=== PATIENT | male | born 1930 | race Caucasian/White ===

== ENCOUNTER → 2018-05-29 | Outpatient (CLI) | payer MEDICARE, BC ==
--- NOTE | 2018-05-29 17:57 | PCVCIMAG ---
EXAM: BILATERAL LOWER EXTREMITY ARTERIAL DUPLEX INDICATION: Peripheral Arterial Disease. Leg pain. Nonhealing ulcer medial left ankle. FINDINGS: Right Leg: Common femoral and profunda femoral arteries are patent. Superficial femoral artery and popliteal artery are patent. The peroneal and posterior tibial arteries are patent. Occlusion of the mid/distal anterior tibial artery. Left Leg: Common femoral and profunda femoral arteries are patent. Superficial femoral artery and popliteal artery are patent. Increased systolic velocity 490 cm/s tibial peroneal trunk consistent with 90% stenosis. Moderate stenosis origin posterior tibial artery. Moderate stenosis origin peroneal artery. Occlusion throughout the anterior tibial artery. IMPRESSION: Occlusion of the mid/distal right anterior tibial artery. Otherwise no flow-limiting stenosis in the right lower extremity. 90% stenosis left tibioperoneal trunk with moderate stenosis at the origins of the left peroneal and posterior tibial arteries. Occlusion left anterior tibial artery. LOC:[id number]
== END | disposition home or self-care (01) ==
LOC: PCVCIMAG 11:39
DX: I73.9 Peripheral vascular disease, unspecified (principal); L98.491 Non-pressure chronic ulcer of skin of other sites limited to breakdown of skin
CPT/HCPCS: 93925

== ENCOUNTER → 2018-06-15 | Outpatient (CLI) | payer MEDICARE, BC ==
[~2018-06-15] MED LIST: CLOPIDOGREL BISULFATE 75 MG TABLET ONE; DIAZEPAM 10 MG TABLET. ONE; EPTIFIBATIDE BOLUS 2,000 MCG/ML 10ML VIAL. IV ONE; HEPARIN for SUB-Q USE 5,000 UNIT/ML VIAL. SQ ONE; IODIXANOL 270 MG/ML 100 ML VIAL. ONE; IV NORMAL SALINE 1000ML BAG 1,000 ML ONE; LIDOCAINE 1%/EPI 1:100,000 20 ML VIAL. ONE; MIDAZOLAM HCL/PF 2 MG/2 ML VIAL. ONE; fentaNYL PF VIAL 100 MCG/2 ML VIAL ONE; hydrALAZINE 20 MG/ML VIAL. ONE
--- NOTE | 2018-06-15 12:31 | PCVCINTER ---
EXAM: 1. LEFT LOWER EXTREMITY RUNOFF ANGIOGRAM 2. LEFT TIBIOPERONEAL TRUNK/PROXIMAL PERONEAL ARTERY ATHERECTOMY AND ANGIOPLASTY. 4. SECONDARY THROMBECTOMY LEFT TIBIOPERONEAL TRUNK AND PROXIMAL PERONEAL ARTERY. 5. ANGIOPLASTY PROXIMAL LEFT POSTERIOR TIBIAL ARTERY. INDICATION: Peripheral arterial disease. Coronary artery disease. Nonhealing ulcer left lower extremity. Hypertension. Renal atherosclerosis. No prior catheter based angiographic study is available. A full diagnostic angiogram study is performed today and the decision to intervene is based on this diagnostic study. PROCEDURE: Procedure and risks of angiography intervention is appropriate including limb loss stroke and were discussed with the patient's family and consent obtained. The patient's right groin was prepped in the normal sterile fashion. IV conscious sedation was used throughout procedure with appropriate monitoring from 10:30 AM through 12:00 PM. Ultrasound was used to interrogate the right groin and showed the right common femoral artery to be patent. A permanent spot film was obtained. Under ultrasound guidance access into the right common femoral artery was obtained and a 5 Mongolian sheath was placed. Through this a 5 Mongolian catheter was placed into left common iliac artery and left iliac angiogram obtained. Catheter was advanced to the level of the left external iliac artery and left leg runoff angiography was obtained. Patient was given 4500 units of heparin. A 6 Mongolian crossover sheath was placed via the right groin to the level of the left common femoral artery. Atherectomy of the left tibioperoneal trunk/proximal peroneal artery was performed with 0.9 mm BluetestnetTamtron laser atherectomy catheter in the standard fashion. Following atherectomy small areas of thrombus were observed and because of this secondary thrombectomy throughout the left tibioperoneal trunk/proximal peroneal artery was carried out with mechanical suction thrombectomy catheter in the standard fashion. Minimal debris was removed. Angioplasty of the left tibioperoneal trunk/proximal peroneal artery was carried out with a 3.0 x 40 sleek [employer] catheter. Next angioplasty of the left tibioperoneal trunk and proximal posterior tibial artery was carried out with a 4.0 x 40 sleek [employer] catheter. Following this angioplasty of the proximal left posterior tibial artery was carried out with a 2.0 x 40 sleek [employer] catheter. Follow-up angiogram was performed. Catheters and wires removed. Sheath was removed and hemostasis obtained using the FISH device. No immediate complications. FINDINGS: Left leg: Left common and external iliac arteries show good patency. Left common femoral artery is patent. Left profunda femoral artery is patent. Superficial femoral artery and popliteal artery show satisfactory patency throughout. 80% stenosis tibioperoneal trunk. 90% stenosis proximal posterior tibial artery. 80% stenosis origin of the left peroneal artery. Anterior tibial artery is occluded throughout. Left tibioperoneal trunk/proximal peroneal artery: Following procedure as above left tibioperoneal trunk shows good patency throughout. Moderate residual stenosis at the origin of the left peroneal artery. Left proximal posterior tibial artery: Following procedure as above vessel shows good patency. IMPRESSION: Areas of stenosis left tibioperoneal trunk, proximal peroneal artery, and proximal posterior tibial artery were treated as above with improved patency as described. LOC:[id number]
== END | disposition home or self-care (01) ==
LOC: PCVCINTER 10:29
PROVIDERS: ATTEND Nuclear Medicine Nuclear Cardiology
DX: I70.248 Atherosclerosis of native arteries of left leg with ulceration of other part of lower leg (principal); L98.499 Non-pressure chronic ulcer of skin of other sites with unspecified severity; I25.10 Atherosclerotic heart disease of native coronary artery without angina pectoris; I10 Essential (primary) hypertension; I70.1 Atherosclerosis of renal artery; I87.1 Compression of vein
CPT/HCPCS: 37186; 37229; 37232; 75710; 76937; 99152; 99153; C1713; C1725; C1751; C1757; C1760; C1769; C1885; C1894; J0360; J0690; J1327; J1644; J2250; J3010; J3490; J7030; Q9967; 37228

== ENCOUNTER → 2018-06-26 | Outpatient (CLI) | payer MEDICARE, BC ==
[~2018-06-26] MED LIST changes: -CLOPIDOGREL BISULFATE 75 MG TABLET ONE; -EPTIFIBATIDE BOLUS 2,000 MCG/ML 10ML VIAL. IV ONE; -IODIXANOL 270 MG/ML 100 ML VIAL. ONE; +IOHEXOL 300 MG/ML 100ML VIAL. ONE; -IV NORMAL SALINE 1000ML BAG 1,000 ML ONE; +IV NORMAL SALINE 500ML BAG 500 ML ONE; +LIDOCAINE 1% Multi-Dose 20 ML VIAL. ONE; -LIDOCAINE 1%/EPI 1:100,000 20 ML VIAL. ONE
--- NOTE | 2018-06-26 12:59 | PCVCIMAG ---
EXAM: BILATERAL CAROTID DUPLEX INDICATION: Carotid Occlusive Disease. FINDINGS: Doppler Measurements (centimeters per second): RIGHT: Peak CCA-95, Peak ECA-90, Diastolic ICA-29, Peak ICA-140, ICA/CCA Ratio-1.5. LEFT: Peak CCA-89, Peak ECA-94, Diastolic ICA-16, Peak ICA-95, ICA/CCA Ratio-1.1. RIGHT CAROTID: The carotid bulb has moderate plaque. The proximal internal carotid artery shows 40-50% stenosis. The common carotid artery shows no significant stenosis. The external carotid artery shows no significant stenosis. LEFT CAROTID: The carotid bulb has moderate plaque. The proximal internal carotid artery shows <40% stenosis. The common carotid artery shows no significant stenosis. The external carotid artery shows no significant stenosis. Antegrade flow in both vertebral arteries. IMPRESSION: 40-50% stenosis of the right internal carotid artery with moderate plaque. <40% stenosis of the left internal carotid artery with moderate plaque. LOC:[id number] [id number]
--- NOTE | 2018-06-26 13:01 | PCVCIMAG ---
EXAM: LEFT LEG SUPERFICIAL VENOUS DUPLEX INDICATION: Leg pain and swelling. FINDINGS: Left leg: No thrombus in the common femoral, main femoral, or popliteal veins. These veins are compressible. Left Great Saphenous Vein: At the saphenofemoral junction the diameter is 7.8 mm, in the mid thigh it is 3.9 mm, and in the calf it is 4.6 mm. There is not significant venous insufficiency/reflux throughout. Venous insufficiency/reflux duration is 0.2 seconds. Left Small Saphenous Vein: At the saphenopopliteal junction the diameter is 4.1 mm, and in the calf it is 3.9 mm. There is not significant venous insufficiency/reflux throughout. Venous insufficiency/reflux duration is 0 seconds. There is not a cranial extension present. IMPRESSION: Left Great Saphenous Vein: No significant venous insufficiency/reflux is present as noted above. Left Small Saphenous Vein: No significant venous insufficiency/reflux is present as noted above. LOC:[id number]
--- NOTE | 2018-06-26 20:14 | PCVCINTER ---
EXAM: 1. INTRAVASCULAR ULTRASOUND OF THE INFERIOR VENA CAVA 2. INTRAVASCULAR ULTRASOUND OF THE RIGHT COMMON AND EXTERNAL ILIAC AND COMMON FEMORAL VEINS 3. INTRAVASCULAR ULTRASOUND OF THE LEFT COMMON AND EXTERNAL ILIAC AND COMMON FEMORAL VEINS 4. INFERIOR VENA CAVA AND BILATERAL ILIOFEMORAL VENOGRAPHY 5. RIGHT COMMON ILIAC VEIN ANGIOPLASTY. 6. RIGHT EXTERNAL ILIAC VEIN ANGIOPLASTY. 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 Leg pain and swelling. Failed conservative therapy including medical grade compression stockings for at least 3 months. Venous hypertension chronic. PROCEDURE: Procedure and risks of IVC and ileofemoral venography and intravascular ultrasound, and venous stent placement as appropriate including bleeding, infection, venous thrombosis, stent migration/thrombosis, contrast-induced nephropathy requiring dialysis, stroke, and were discussed with the patient and consent obtained. Patient was given IV antibiotics. The patient's right neck and chest was prepped and draped in the normal sterile fashion. IV conscious sedation was used throughout the procedure with appropriate monitoring. Ultrasound was used to interrogate the neck and showed the internal jugular vein to be patent. A spot ultrasound image of the internal jugular vein was saved. Under ultrasound guidance access into the right internal jugular vein was obtained and an 8F sheath was placed to the level of the lower IVC. Catheter was placed into the lower IVC and IVC cavogram performed. Catheter was placed to the level of the right common femoral vein and right iliofemoral venogram obtained. Catheter was placed to the level of the left common femoral vein and left iliofemoral venogram was obtained. The 8 Slovak intravascular ultrasound catheter was then placed to the level of the right common femoral vein and intravascular ultrasound evaluation of the right common femoral, right external iliac, and right common iliac veins was accomplished in a pull-back fashion. The 8 Slovak intravascular ultrasound catheter was then placed to the level of the left common femoral vein and intravascular ultrasound evaluation of the left common femoral, left external iliac, and left common iliac veins was accomplished in a pull-back fashion. Intravascular ultrasound evaluation of the inferior vena cava was then accomplished in a pullback fashion. Angioplasty throughout the right common iliac vein was performed using a 14 x 40 [employer] catheter. Angioplasty throughout the right external iliac vein was performed using a 14 x 40 [employer] catheter. Sheath was removed and hemostasis obtained using manual pressure. FINDINGS: IVC INTRAVASCULAR ULTRASOUND: Normal vessel: 12.6 x 18.5 mm. Area = 165.1 sq. mm. RIGHT COMMON ILIAC VEIN INTRAVASCULAR ULTRASOUND: Normal vessel: 15.4 x 17.6 mm. Area = 215.4 sq. mm. Post-Intervention diameter: 15.7 x 19.1 mm. Area = 239.5 sq. mm. RIGHT EXTERNAL ILIAC VEIN INTRAVASCULAR ULTRASOUND: Normal vessel: 16.8 x 19.2 mm. Area = 256.0 sq. mm. Minimum vessel diameter: 9.4 x 12.5 mm. Area = 94.8 sq. mm. Post-Intervention diameter: 12.3 x 13.3 mm. Area = 133.7 sq. mm. RIGHT COMMON FEMORAL VEIN INTRAVASCULAR ULTRASOUND: Normal vessel: 7.8 x 11.0 mm. Area = 72.2 sq. mm. LEFT COMMON ILIAC VEIN INTRAVASCULAR ULTRASOUND: Normal vessel: 8.9 x 17.4 mm. Area = 126.3 sq. mm. Minimum vessel diameter: 8.2 x 13.5 mm. Area = 86.9 sq. mm. LEFT EXTERNAL ILIAC VEIN INTRAVASCULAR ULTRASOUND: Normal vessel: 11.5 x 15.0 mm. Area = 138.6 sq. mm. LEFT COMMON FEMORAL VEIN INTRAVASCULAR ULTRASOUND: Normal vessel: 8.3 x 13.8 mm. Area = 90.4 sq. mm. VENOGRAPHY: INFERIOR VENA CAVA: Vessel is patent without significant stenosis, scarring, or extrinsic compression. RIGHT COMMON ILIAC VEIN: Moderate in-stent restenosis mid/lower vessel. RIGHT EXTERNAL ILIAC VEIN: Moderate in-stent restenosis mid vessel with 63% area reduction. RIGHT COMMON FEMORAL VEIN: Vessel is patent without significant stenosis, scarring, or extrinsic compression. LEFT COMMON ILIAC VEIN: Vessel is patent without significant stenosis, scarring, or extrinsic compression. LEFT EXTERNAL ILIAC VEIN: Vessel is patent without significant stenosis, scarring, or extrinsic compression. LEFT COMMON FEMORAL VEIN: Vessel is patent without significant stenosis, scarring, or extrinsic compression. IMPRESSION: Previous left external iliac vein stent maintaining good patency. Only mild extrinsic compression of the origin of the left common iliac vein is not felt to be hemodynamically significant. Moderate stent restenosis within previous right common and external iliac vein stents were treated with angioplasty with good patency restored. LOC:[id number]
== END | disposition home or self-care (01) ==
LOC: PCVCIMAG 10:09
PROVIDERS: ATTEND Nuclear Medicine Nuclear Cardiology
DX: I87.2 Venous insufficiency (chronic) (peripheral) (principal); I87.309 Chronic venous hypertension (idiopathic) without complications of unspecified lower extremity; E11.9 Type 2 diabetes mellitus without complications; I10 Essential (primary) hypertension; I65.23 Occlusion and stenosis of bilateral carotid arteries; L98.498 Non-pressure chronic ulcer of skin of other sites with other specified severity; I87.1 Compression of vein; Z79.84 Long term (current) use of oral hypoglycemic drugs
CPT/HCPCS: 36012; 37246; 37247; 37252; 37253; 75822; 75825; 76937; 93880; 93971; 99152; 99153; C1725; C1751; C1753; C1769; C1894; J1644; J2250; J3010; J7040; Q9967; J0360

== ENCOUNTER → 2018-11-26 | Outpatient (CLI) | payer MEDICARE, BC | END | disposition home or self-care (01) | LOC: PCVCCLINIC 09:20 | PROVIDERS: ATTEND Nuclear Medicine Nuclear Cardiology | DX: I73.9 Peripheral vascular disease, unspecified (principal); I87.1 Compression of vein; I77.9 Disorder of arteries and arterioles, unspecified; L98.499 Non-pressure chronic ulcer of skin of other sites with unspecified severity; I50.9 Heart failure, unspecified; E11.9 Type 2 diabetes mellitus without complications; K21.9 Gastro-esophageal reflux disease without esophagitis; E78.5 Hyperlipidemia, unspecified; Z79.899 Other long term (current) drug therapy | CPT/HCPCS: G0463 ==